=== PATIENT | female | born 1945 | race Two or more races ===

== ENCOUNTER → 2025-07-21 | Emergency (ER) | payer OTHER ==
[~2025-07-21] VITALS: Ht 160 cm; Wt 55.8 kg
[~2025-07-21] MED LIST: DEXAMETHASONE SODIUM PHOSPHATE 4 MG/ML VIAL IM ONE; DOLOGESIC 500-1 EACH PO; KETOROLAC TROMETHAMINE 30 MG VIAL IM ONE; XARELTO10 MG
== END | disposition left against medical advice (07) ==
LOC: ER 08:34
DX: M75.52 Bursitis of left shoulder (principal); M25.512 Pain in left shoulder; I10 Essential (primary) hypertension; E03.8 Other specified hypothyroidism